=== PATIENT | male | born 1945 | race Caucasian/White ===

== ENCOUNTER → 2020-10-21 | Outpatient (CLI) | payer MEDICARE, OTHER ==
[2015-11-10 23:03] VITALS: BP 132/74
--- NOTE | 2020-10-21 14:25 | KCIC ---
MR LUMBAR SPINE WO [id number] History: Reason: LUMBAR RADICULOPATHY / Spl. Instructions: / History: Progressing burning and pain i n BLE, L>R. Neuropathy in both feet. Technique: Multiplanar, multi sequential MR imaging was performed of the lumbar spine. Comparison: None Findings: Mild rightward curvature. Normal vertebral body height. No acute fracture. Degenerative endplate scott a L4-L5. Conus terminates at the normal location. No evidence of nerve root clumping. Right renal cyst. L1-L2: Minimal disc bulge. Mild facet arthropathy. No canal or neuroforaminal narrowing. L2-L3: Small disc bulge. Mild facet arthropathy. No canal or neuroforaminal narrowing. L3-L4: Small disc bulge. Mild facet arthropathy. No canal or neuroforaminal narrowing. L4-L5: Broad-based disc bulge. Moderate facet arthropathy. No canal narrowing. Mild right subarticul ar recess narrowing. Mild bilateral neuroforaminal narrowing. L5-S1: Disc bulge. Moderate facet arthropathy. No canal narrowing. Moderate to severe right and mode rate left neuroforaminal narrowing. Impression: 1. Multilevel lumbar spondylosis most prominent L4-5 and L5-S1. 2. Neuroforaminal narrowing most prominent L5-S1. Electronically signed by: Gera Hernandez DO (10/21/2020 2:22 PM) [id number]
== END ==
LOC: KCIC MRI 10:44
PROVIDERS: ATTEND Orthopaedic Surgery
DX: M47.27 Other spondylosis with radiculopathy, lumbosacral region (principal); M48.07 Spinal stenosis, lumbosacral region; M51.17 Intervertebral disc disorders with radiculopathy, lumbosacral region; N28.1 Cyst of kidney, acquired
CPT/HCPCS: 72148

== ENCOUNTER → 2020-11-11 | Outpatient (CLI) | payer MEDICARE, OTHER ==
[2015-11-10 23:03] VITALS: BP 132/74
[~2020-11-11] MED LIST: ACET325T21 PO; BENA20TA4 PO; ESOM40CA PO; GABA800T5 PO; IBUP-1060 PO; IOHEXOL 180 MG/ML 10 ML VIAL. ONE; TAMS0.4C97 PO; methylPREDNISolone ACETATE 80 MG/ML VIAL. ONE
--- NOTE | 2020-11-11 16:12 | PDOC1 ---
INITIAL PAIN CONSULT DATE OF SERVICE: DOS: DATE: 11/11/20 TIME: 16:06 CHIEF COMPLAINT: Chief Complaint: Low back and left greater than right lower extremity pain HISTORY OF PRESENT ILLNESS: 75-year-old male presents history of pain in the low back and bilateral lower extremities worse on the left side for many years worse over the past 6 months or so without any specific injury or accident that he is aware of but getting worse with walking standing changing positions better with sitting or laying down. Patient reports the pain is in the low back bilaterally in the lower extremities posterior gluteus posterior lateral thigh posterior calves posterior ankles into the feet again worse on the left side the right is worse with walking standing better with sitting or laying down wakes him sleep least twice a night patient reports it does affect his bowel bladder control but he has no incontinence is some increased frequency patient reports that it does not affect his ability to walk he has been walking with a cane at times but does not have that with him today and only if he is going further distances. Patient has tried physical therapy in the past as well as chiropractic treatments without specific improvement and is currently doing exercises on his own and stretching daily. 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 Patient reports that prolonged driving can exacerbate the pain as well but mostly with standing and changing positions patient rates his disability rating 0-10 10 being the worst is an 8 with family home responsibilities recreation social activity occupation and self-care 7 with sexual haven 10 with life support activities. Patient did have an MRI scan of the lumbar spine dated October 21, 2020 showing broad-based disc bulge at L4-5 with moderate facet arthropathy no canal narrowing mild right subarticular recess narrowing mild bilateral neuroforaminal narrowing L5-S1 shows disc bulge with moderate facet arthropathy no canal narrowing with moderate to severe right and moderate left neuroforaminal narrowing. PAST MEDICAL HISTORY: PMH: Hypertension, arthritis, acid reflux, sleep apnea, obesity, intestinal cancer in remission PREVIOUS SURGERIES: Past Surgical Hx: Left ankle surgery, right knee scope, right Achilles repair, bowel resection, appendectomy, cholecystectomy, hemorrhoidectomy, right trigger finger release CURRENT MEDICATIONS: Current Meds: See chart ALLERGIES; Allergies: Coded Allergies: No Known Drug Allergies (Unverified , 11/10/15) FAMILY HISTORY: Family Hx: Heart disease and cancers SOCIAL HISTORY: Social Hx: Patient drinks very rarely does not smoke says any illegal illicit or recreational drugs is lives with his spouse is retired and lives locally in [facility] REVIEW OF SYSTEMS: ROS: Positive for those items mentioned in history of present illness, all systems are reviewed, otherwise negative ,and are complete full and well-documented on patient's chart. PHYSICAL EXAM: VS: Blood pressure is 141/87 pulse 74 respirations 16 temperature 90.1 F height is 6 foot weight is 280 pounds PE: PHYSICAL EXAMINATION: GENERAL: The patient is awake, alert, oriented, appropriate, very pleasant in demeanor. HEENT: Shows normocephalic, atraumatic. Extraocular movements are intact and symmetrical. Oral cavity: Mucous membranes moist and pink. NECK: Shows anterior throat supple without palpable lymphadenopathy noted. Swallow reflex symmetrical. CHEST: Shows normal on inspection. Breath sounds are clear bilaterally, no rales rhonchi or wheezes auscultated. HEART: Shows S1, S2 clear. No murmurs auscultated. ABDOMEN: Soft, nontender, nondistended. No palpable organomegaly is noted. No rebound or guarding demonstrated. BACK: Shows spine grossly in the midline. Normal-appearing cervical lordotic curvature. There is slightly increased thoracic kyphosis, some minor flattening of the lumbar lordotic curvature. Lumbar paraspinous muscles show symmetrical on inspection, on palpation shows some moderate tenderness diffusely throughout the upper, middle and lower distribution of the paraspinous muscles bilaterally and also into the lower thoracic paraspinous musculature, firm and tender, but without specific trigger points, without radiation of pain. The patient has good rotational motion of the lumbar spine, both laterally as well as extension and flexion without significant difficulty. No tenderness over the spinous processes, sacrum or sacroiliac regions. EXTREMITIES: Lower extremities show deep tendon reflexes one in the patellar and tendo calcaneus tendons. Motor exam is 5 on a scale of 5 with right dorsiflexion, extension, quadriceps and hamstring flexion and 4/5 on the left. Peripheral pulses are 1+ posterior tibial. No peripheral edema is noted bilaterally. Lower extremities are warm and dry to touch, equal in color and appearance. Straight leg raise noted to be positive on the left at approximately 80 degrees, right side is negative.. Gaenslen's and Arnulfo's maneuvers are negative bilaterally as well. The patient is able to stand, stand on his toes without significant difficulty, walks with a slight favoring gait does appear to favor the left lower extremity but does not use any assistive devices to ambulate such as canes or walkers on his visit today. SKIN: Shows warm and dry, good turgor. No edema. No sores, rashes or bruising throughout. IMPRESSION: Impression: 75-year-old male with long history low back bilateral lower extremity pain worse on the left than the right in a radicular fashion. MRI scan lumbar spine as noted Arthritis Hypertension History of intestinal cancer Sleep apnea Plan: Options were discussed with the patient including conservative management continued physical therapies interventional techniques. Patient like to pursue interventional techniques. We discussed a lumbar epidural steroid injections description as well as anatomical models to describe the procedure. Risks were discussed including but not limited to: Bleeding, infection, possibility of epidural hematoma and subsequent neurological compromise, dural puncture, hea daches, spinal cord and/or nerve damage, side effects of steroid medication, and poor results regarding pain control. Patient understands and wished to proceed. Patient will return to clinic in approximately 2 weeks for follow-up, was counseled as to return appointment activity level and side effects to be aware of. Procedure is lumbar epidural steroid injection under local anesthetic using sterile prep and drape at the L5-S1 level using C-arm fluoroscopic guidance in both AP and lateral views medications injected is 120 mg Depo-Medrol +10mL preservative-free normal saline and 2 mL contrast- condition at discharge is stable patient tolerated procedure well had no complications. ANABELLE SOUZA MD Nov 11, 2020 16:12
--- NOTE | 2020-11-11 16:13 | PDOC4 ---
Procedure Note: ICD 10 Code: ICD 10 Code: M54.17 M47.817 M51.87 Procedure Note: Patient was consented for lumbar epidural steroid injection with fluoroscopic guidance. Risks were discussed including but not limited to: Bleeding, infection, possibility of epidural hematoma and subsequent neurological compromise, dural puncture, headaches, spinal cord and/or nerve damage, side effects of steroid medication, and poor results regarding pain control. Patient understands and wished to proceed. Procedure is lumbar epidural steroid injection under local anesthetic using st erile prep and drape at the L5-S1 level using C-arm fluoroscopic guidance in both AP and lateral views medications injected is 120 mg Depo-Medrol +10mL preservative-free normal saline and 2 mL contrast- condition at discharge is stable patient tolerated procedure well had no complications. ANABELLE SOUZA MD Nov 11, 2020 16:13
== END | disposition home or self-care (01) ==
LOC: PNCL 13:19
PROVIDERS: ATTEND Anesthesiology
DX: M54.5 Low back pain (principal); M79.604 Pain in right leg; I10 Essential (primary) hypertension; M19.90 Unspecified osteoarthritis, unspecified site; K21.9 Gastro-esophageal reflux disease without esophagitis; G47.30 Sleep apnea, unspecified; E66.9 Obesity, unspecified; Z90.49 Acquired absence of other specified parts of digestive tract; Z98.890 Other specified postprocedural states; Z79.899 Other long term (current) drug therapy; Z82.49 Family history of ischemic heart disease and other diseases of the circulatory system
CPT/HCPCS: 62323; J1040; Q9965

== ENCOUNTER → 2020-11-25 | Outpatient (CLI) | payer MEDICARE, OTHER ==
[2015-11-10 23:03] VITALS: BP 132/74
--- NOTE | 2020-11-25 16:18 | PDOC ---
Progress Note - Pain Clinic Date of Service: DOS: DATE: 11/25/20 TIME: 16:15 Diagnosis: Dx: Lumbar radiculopathy with lumbar degenerative disease and lumbar spondylosis History or Present Illness: HPI: 75-year-old male returns for follow-up status post lumbar epidural steroid injection x1. Patient reports about 75% improvement for the first month or so after the injection with the pain very gradually returning in the low back and left lower extremity posterior gluteus posterior thigh posterior calf patient reports also some achiness and some increased muscular tension and pain in the mid and upper back patient reports his pain a 7 on scale 10 is worst 7 on average and a 5 its least is a 5 today patient reports no new motor or sensory deficits describes pain as aching and dull and constant. Patient reports no bowel or bladder incontinence. Initially patient was doing much better with sleeping doing distance walking doing household activities work activities now the pain returning as noted. Physical Exam: VS: Blood pressure is 99/65 pulse 91 respirations 20 temperature 97.6 F height is 6 foot weight 273 pounds PE: PHYSICAL EXAMINATION: GENERAL: The patient is awake, alert, oriented, appropriate, very pleasant in demeanor HEENT: Shows normocephalic, atraumatic. Extraocular movements are intact and symmetrical. Oral cavity: Mucous membranes moist and pink. Dentition is intact. NECK: Shows anterior throat supple without palpable lymphadenopathy noted. Swallow reflex symmetrical. CHEST: Shows normal on inspection. Breath sounds are clear bilaterally, no rales or rhonchi. HEART: Shows S1, S2 clear. No murmurs auscultated. ABDOMEN: Soft, nontender, nondistended, obese. No palpable organomegaly is noted. BACK: Shows spine grossly in the midline. Normal-appearing cervical lordotic curvature. There is slightly increased thoracic kyphosis, some minor flattening of the lumbar lordotic curvature. Lumbar paraspinous muscles show symmetrical on inspection, on palpation shows some moderate tenderness diffusely throughout the upper, middle and lower distribution of the paraspinous muscles, but without specific trigger points, without radiation of pain. The patient has good rotational motion of the lumbar spine, both laterally as well as extension and flexion without significant difficulty. EXTREMITIES: Lower extremities show deep tendon reflexes 1 in the patellar and tendo calcaneus tendons. Motor exam is 5 on a scale of 5 with right dorsiflexion, extension, quadriceps and hamstring flexion and 4/5 on the left. Peripheral pulses are 1+ posterior tibial. No peripheral edema is noted bilaterally. Lower extremities are warm and dry to touch, equal in color and appearance. SKIN: Shows warm and dry, good turgor. No edema. No sores, rashes or bruising throughout. Procedure: Procedure: Options were discussed with the patient. Patient's old chart was reviewed his current medication regimen updated current review of systems updated today as well. We will proceed with a lumbar epidural steroid injection today with fluoroscopic guidance risks were discussed including but not limited to: Bleeding, infection, possibility of epidural hematoma and subsequent neurological compromise, dural puncture, headaches, spinal cord and/or nerve damage, side effects of steroid medication, and poor results regarding pain control. Patient understands and wished to proceed. Patient will return to clinic in approximate 2 weeks for follow-up, was counseled as return appointment, activity level, and side effect to be aware of. Medication Injected: Med Injected: Procedure is lumbar epidural steroid injection under local anesthetic using sterile prep and drape at the L5-S1 level using C-arm fluoroscopic guidance in both AP and lateral views medications injected is 120 mg Depo-Medrol +10mL preservative-free normal saline and 2 mL contrast- condition at discharge is stable patient tolerated procedure well had no complications. Condition at Discharge: Condition at Discharge: Condition at discharge is stable, patient tolerated the procedure well and had no complications. ANABELLE SOUZA MD Nov 25, 2020 16:18
--- NOTE | 2020-11-25 16:18 | PDOC4 ---
Procedure Note: ICD 10 Code: ICD 10 Code: M54.17 M51.87 M4 7.817 Procedure Note: Patient was consented for lumbar epidural steroid injection with fluoroscopic guidance. Risks were discussed including but not limited to: Bleeding, infection, possibility of epidural hematoma and subsequent neurological compromise, dural puncture, headaches, spinal cord and/or nerve damage, side effects of steroid medication, and poor results regarding pain control. Patient understands and wished to proceed. Procedure is lumbar epidural steroid injection under local anesthetic using st erile prep and drape at the L5-S1 level using C-arm fluoroscopic guidance in both AP and lateral views medications injected is 120 mg Depo-Medrol +10mL preservative-free normal saline and 2 mL contrast- condition at discharge is stable patient tolerated procedure well had no complications. ANABELLE SOUZA MD Nov 25, 2020 16:18
== END | disposition home or self-care (01) ==
LOC: PNCL 14:58
PROVIDERS: ATTEND Anesthesiology
DX: M51.16 Intervertebral disc disorders with radiculopathy, lumbar region (principal); M47.26 Other spondylosis with radiculopathy, lumbar region; Z79.899 Other long term (current) drug therapy
CPT/HCPCS: 62323; J1040; Q9965